=== PATIENT | female | born 1975 | race Caucasian/White ===

== ENCOUNTER → 2016-08-27 | Outpatient (CLI) | payer OTHER ==
[~2016-08-27] MED LIST: DOXY100T PO; LOW-TAB2 PO; [UNRECOGNIZED DRUG - CODE] TOP
[2016-08-27 13:43] LABS: HEMATOCRIT 33.1 % (35.0-46.0); MEAN CELL VOLUME 74.8 FL (80.0-100.0); MEAN CORPUSCULAR HEMOGLOBIN 23.4 PG (27.0-34.0); MEAN CORPUSCULAR HGB CONC 31.3 % (32.0-36.0); PLATELET COUNT 370 TH/MM3 (150-450); RED BLOOD COUNT 4.43 MIL/MM3 (4.00-5.30); RED CELL DISTRIBUTION WIDTH 14.9 % (11.6-17.2); WHITE BLOOD COUNT 7.7 TH/MM3 (4.0-11.0)
[2016-08-27 13:44] LABS: REVIEW FLAG FINAL
[2016-08-27 14:23] LABS: FREE T4 0.98 NG/DL (0.76-1.46)
== END ==
LOC: PLAB 08:10
PROVIDERS: ATTEND Family Medicine
DX: D50.9 Iron deficiency anemia, unspecified (principal)
CPT/HCPCS: 36415; 82728; 84439; 84443; 85027

== ENCOUNTER → 2016-12-11 | Outpatient (CLI) | payer OTHER ==
[2016-12-11 15:05] LABS: BASOPHIL % 0.3 % (0.0-2.0); EOSINOPHIL # 0.1 TH/MM3 (0-0.4); HEMATOCRIT 33.4 % (35.0-46.0); HEMO FLAGS DIFF FINAL; LYMPH % 21.2 % (9.0-44.0); LYMPHOCYTE # 1.7 TH/MM3 (1.0-4.8); MEAN CORPUSCULAR HEMOGLOBIN 23.7 PG (27.0-34.0); MEAN CORPUSCULAR HGB CONC 32.5 % (32.0-36.0); MONO % 3.4 % (0.0-8.0); NEUT % 74.1 % (16.0-70.0); PLATELET COUNT 415 TH/MM3 (150-450); RED BLOOD COUNT 4.58 MIL/MM3 (4.00-5.30); RED CELL DISTRIBUTION WIDTH 15.3 % (11.6-17.2); WHITE BLOOD COUNT 8.1 TH/MM3 (4.0-11.0)
[2016-12-11 15:32] LABS: ALT (GPT) 16 U/L (10-53); ANION GAP 9 MEQ/L (5-15); AST (GOT) 13 U/L (15-37); BICARBONATE 25.1 MEQ/L (21.0-32.0); BLOOD UREA NITROGEN 9 MG/DL (7-18); CHLORIDE 105 MEQ/L (98-107); GLOMERULAR FILTRATION RATE 64 ML/MIN (>89); GLUCOSE,FASTING 120 MG/DL (74-99); POTASSIUM 3.6 MEQ/L (3.5-5.1); RHEUMATOID FACTOR TRIGGER LESS THAN 10.0 IU/ML (0.0-14.9); SODIUM (NA) 139 MEQ/L (136-145)
[2016-12-11 15:40] LABS: ALKALINE PHOSPHATASE 104 U/L (45-117); FERRITIN 9 NG/ML (8-252); FREE T4 1.24 NG/DL (0.76-1.46); TOTAL BILIRUBIN ADULT 0.4 MG/DL (0.2-1.0); TRANSFERRIN IRON PROFILE 323 MG/DL (200-360)
[2016-12-15 15:54] LABS: THROMBIN TIME FOR LA ND sec (13-19)
== END ==
LOC: CLAB 14:09
PROVIDERS: ATTEND Obstetrics & Gynecology
DX: I10 Essential (primary) hypertension (principal); E03.9 Hypothyroidism, unspecified; E55.9 Vitamin D deficiency, unspecified; D50.9 Iron deficiency anemia, unspecified; R53.83 Other fatigue; R53.81 Other malaise; D89.89 Other specified disorders involving the immune mechanism, not elsewhere classified; Z13.0 Encounter for screening for diseases of the blood and blood-forming organs and certain disorders involving the immune mechanism
CPT/HCPCS: 36415; 80053; 82306; 82728; 83540; 83550; 84439; 84443; 85025; 85597; 85613; 85730; 86038; 86430

== ENCOUNTER → 2017-04-22 | Outpatient (CLI) | payer OTHER ==
[2017-04-22 10:37] LABS: HEMATOCRIT 37.4 % (35.0-46.0); MEAN CELL VOLUME 81.5 FL (80.0-100.0); MEAN CORPUSCULAR HEMOGLOBIN 27.1 PG (27.0-34.0); MEAN CORPUSCULAR HGB CONC 33.3 % (32.0-36.0); PLATELET COUNT 340 TH/MM3 (150-450); RED BLOOD COUNT 4.58 MIL/MM3 (4.00-5.30); REVIEW FLAG FINAL; WHITE BLOOD COUNT 7.5 TH/MM3 (4.0-11.0)
[2017-04-22 11:02] LABS: BICARBONATE 27.3 MEQ/L (21.0-32.0)
[2017-04-22 11:11] LABS: FREE T3 3.39 PG/ML (2.18-3.98); HDL CHOLESTEROL 40.9 MG/DL (40.0-60.0)
[2017-04-24 17:06] LABS: BIOAVAILABLE TESTOSTERONE 1.5 ng/dL
== END ==
LOC: CLAB 08:51
PROVIDERS: ATTEND Obstetrics & Gynecology
DX: E55.9 Vitamin D deficiency, unspecified (principal); D50.9 Iron deficiency anemia, unspecified; N18.1 Chronic kidney disease, stage 1; E03.9 Hypothyroidism, unspecified; Z13.220 Encounter for screening for lipoid disorders
CPT/HCPCS: 36415; 80048; 80061; 82306; 82728; 84403; 84410; 84443; 84481; 85027

== ENCOUNTER 2017-09-03 08:06 | Observation (INO) | payer OTHER ==
--- NOTE | 2017-09-02 10:02 | MH ---
cc: Norah Albright MD DATE OF ADMISSION: 09/03/2017 CHIEF COMPLAINT: Severe menometrorrhagia and dysmenorrhea despite endometrial ablation approximately 1 year prior. SCHEDULED PROCEDURE: Laparoscopic assisted supracervical hysterectomy with bilateral salpingectomy. HISTORY OF PRESENT CONDITION: The patient is a 42-year-old single white female, 2, para 1, status post a NovaSure in the office last October for menometrorrhagia. This NovaSure went uneventfully. However, in the fall, she began to have dysmenorrhea with light periods that have gradually increased in amount, time, duration and pain. Multiple sonograms have not revealed either a hematocolpos collection of endometrial fluid or adnexal pathology. However, this condition has continued to progress and she has chronic cervical motion tenderness and severe pain to where she is missing work and cannot function on a routine daily basis. She has not been febrile. She does not complain of changes in her bowel or bladder habits. She has undergone significant stress in the last couple of years, both with the health of her family members, financial and professional obligations. 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 She tries to exercise, eat healthy and does not smoke, drink or use illicit drugs. She has a history of a distant Pap smear at the time of her with her child, who is now in medical school. She has not responded to oral contraceptives or other noninvasive measures at this time. She has not tolerated endometrial biopsy due to pain, but at the time of her NovaSure, there was no evidence of any hyperplasia. FAMILY HISTORY: Significant for severe diverticulitis. Her mother actually had a perforated diverticular pouch that required a colostomy. ALLERGIES: SHE DOES HAVE AN ALLERGY TO CEPHALOSPORINS THAT APPARENTLY IS ANAPHYLAXIS. MEDICATIONS: Her current medications are alprazolam for sleep, Fioricet for occasional headache. She was just given antibiotics for her extreme cervical motion tenderness despite other signs of infection. PHYSICAL EXAMINATION: GENERAL: She is a well-developed, well-nourished female. VITAL SIGNS: She is afebrile. She is normotensive. PULMONARY: Her lungs are clear to auscultation. CARDIOVASCULAR: Heart rate and rhythm are regular. ABDOMEN: Diffusely tender and she has almost rebound and guarding with evaluation of the lower pelvis. She has normoactive bowel sounds. BACK: She has no CVA tenderness. LYMPHATICS: No lymphadenopathy. PELVIC: Perineum is normal. Cervix is elevated. There is no abnormal discharge, just dark blood. It is not purulent. She has cervical motion tenderness. Last Pap was normal. Most recent ultrasound was normal. She does not tolerate a bimanual exam comfortably. Previous guaiac was negative. EXTREMITIES: Unremarkable. IMPRESSION: Recurrent and severe pelvic pain, with menometrorrhagia despite endometrial ablation. PLAN: To proceed with LASH and removal of tubes. It is our goal to leave the cervix and ovaries. If we find expected pathology in either, she understands we will remove the cervix and/or the ovaries. We reviewed risks of medication, anesthesia, damage to the bowel, bladder, blood vessels. She has signed consents and is scheduled for . MD MEL Tapia/QUEENIE , 10:32 PM , 11:01 PM
[~2017-09-03] VITALS: Ht 165.1 cm; Wt 86.2 kg
[2017-09-03 06:20] VITALS: BP 137/78; PULSE 87; RESP 18; TEMP 97.7; O2SAT 99
[~2017-09-03 08:06] MED LIST changes: +ALPR0.25 PO; +AMLO5 PO; +BACT800T5 PO; +CIPR500T2 PO; -DOXY100T PO; +GUMMCHW PO; +HYDR25TA5 PO; +LEVO88TA2 PO; -LOW-TAB2 PO; +MELA1TAB18 PO; +NORE1TAB73 PO; -[UNRECOGNIZED DRUG - CODE] TOP
[2017-09-03] MEDS ORDERED: POVIDONE IODINE 5% (ANTISEPSIS KIT) 4 APPLICATIONS EACH NARE PRN (08:30)
[2017-09-03] MEDS ORDERED: SODIUM CHLORID 0.9% 500 ML IV PRN (08:30)
[2017-09-03] MEDS ORDERED: LACTATED RINGER'S 1000 ML IV PRN (08:30)
[2017-09-03] MEDS ORDERED: METOPROLOL TARTRATE 25 MG TAB PO PRN (08:30)
[2017-09-03] MEDS ORDERED: CHLORHEXIDINE GLUCONATE 2 % 1 PACK (2 CLOTHS) TOPICAL PRN (08:30)
[2017-09-03] MEDS ORDERED: CLINDAMYCIN 600 MG/NS 100 ML IV SCH ×2 (08:45)
[2017-09-03 08:58] LABS: BACTERIA, URINE RARE /hpf; BILIRUBIN, URINE NEG (NEG); BLOOD, URINE MOD (NEG); GLUCOSE,URINE NEG (NEG); KETONE, URINE 40 mg/dL (NEG); MUCUS URINE FEW /lpf (OCC); NITRITE,URINE NEG (NEG); SQUAMOUS EPITHELIAL CELL URINE 7 /hpf (0-5); URINE COLOR YELLOW (YELLW/STRAW); URINE LEUKOCYTE ESTERASE TRACE (NEG)
[2017-09-03] MEDS ORDERED: PERC5TAB12 PO (09:05)
[2017-09-03] MEDS ORDERED: SODIUM CHLORIDE 0.9% INJ 100 ML ONE (09:10)
[2017-09-03 09:23] LABS: AUTOMATED NEUTROPHIL # 6.3 TH/MM3 (1.8-7.7); BASOPHIL # 0.1 TH/MM3 (0-0.2); BASOPHIL % 0.7 % (0.0-2.0); EOSINOPHIL % 0.6 % (0.0-4.0); HEMATOCRIT 40.3 % (35.0-46.0); HEMOGLOBIN 13.8 GM/DL (11.6-15.3); LYMPH % 14.1 % (9.0-44.0); LYMPHOCYTE # 1.1 TH/MM3 (1.0-4.8); MEAN CELL VOLUME 81.6 FL (80.0-100.0); MEAN CORPUSCULAR HGB CONC 34.3 % (32.0-36.0); MEAN PLATELET VOLUME 7.7 FL (7.0-11.0); MONO % 4.2 % (0.0-8.0); MONOCYTE # 0.3 TH/MM3 (0-0.9); NEUT % 80.4 % (16.0-70.0); PLATELET COUNT 387 TH/MM3 (150-450); RED BLOOD COUNT 4.94 MIL/MM3 (4.00-5.30); WHITE BLOOD COUNT 7.9 TH/MM3 (4.0-11.0)
[2017-09-03 09:43] LABS: ALBUMIN 4.2 GM/DL (3.4-5.0); ALT (GPT) 28 U/L (10-53); AST (GOT) 21 U/L (15-37); BICARBONATE 24.9 MEQ/L (21.0-32.0); BLOOD UREA NITROGEN 11 MG/DL (7-18); CALCIUM 10.1 MG/DL (8.5-10.1); CHLORIDE 100 MEQ/L (98-107); CREATININE 1.04 MG/DL (0.50-1.00); GLOMERULAR FILTRATION RATE 59 ML/MIN (>89); GLUCOSE,RANDOM 111 MG/DL (74-106); SODIUM (NA) 136 MEQ/L (136-145)
[2017-09-03 09:47] LABS: ALKALINE PHOSPHATASE 126 U/L (45-117); TOTAL BILIRUBIN ADULT 0.4 MG/DL (0.2-1.0); TOTAL PROTEIN 9.3 GM/DL (6.4-8.2)
[2017-09-03] MEDS ORDERED: BUPIVACAINE HCL PF 0.25% 30 ML VIAL ONE (10:06)
[2017-09-03] MEDS ORDERED: SODIUM CHLORIDE 0.9% 20 ML VIAL ONE (10:06)
[2017-09-03] MEDS ORDERED: BUPIVACAINE LIPOSOME PF 1.3% 20 ML VIAL ONE (10:07)
[2017-09-03] MEDS ORDERED: DEXAMETHASONE SOD PHOS PF 10 MG/ML VIAL ONE (10:45)
[2017-09-03] MEDS ORDERED: LIDOCAINE 1%/EPINEPHrine 1:100,000 SOLN 50 ML VIAL ONE (10:48)
[2017-09-03] MEDS ORDERED: BUPIVACAINE/EPINEPHRINE 0.25% 50 ML VIAL ONE (10:48)
[2017-09-03] MEDS ORDERED: ACETAMINOPHEN 1000 MG/100 ML 100 ML IV ONE (10:52)
[2017-09-03] MEDS ORDERED: LACTATED RINGER'S 1000 ML INJ 1,000 ML IV ONE (12:00)
[2017-09-03] MEDS ORDERED: KETOROLAC TROMETHAMINE 30 MG/ML (IVP) VIAL IV PUSH ONE ×2 (12:00→14:30)
[2017-09-03] MEDS ORDERED: METOPROLOL TARTRATE 5 MG/5 ML VIAL IV ONE (12:00)
[2017-09-03] MEDS ORDERED: ONDANSETRON HCL 4 MG/2 ML VIAL IV ONE (12:00)
[2017-09-03] MEDS ORDERED: PROPOFOL 200 MG/20 ML AMP IV ONE (12:00)
[2017-09-03] MEDS ORDERED: ROCURONIUM INJ 50 MG/5 ML SYRINGE IV PUSH ONE (12:00)
[2017-09-03] MEDS ORDERED: DEXAMETHASONE SOD PHOS 4 MG/ML VIAL IV ONE (12:00)
[2017-09-03] MEDS ORDERED: GENTAMICIN SULFATE 80 MG/2 ML VIAL ONE (12:07)
[2017-09-03] MEDS ORDERED: SUGAMMADEX SODIUM 200 MG/2 ML VIAL IV PUSH ONE (12:54)
--- NOTE | 2017-09-03 13:25 | EKG ---
Date Performed: 09/03/2017 Time Performed: 09:04:21 PTAGE: 42 years EKG: Sinus rhythm NORMAL ECG NO PREVIOUS TRACING DOCTOR: [place] Marcelino Interpretating Date/Time 09/03/2017 13:24:04
[2017-09-03] MEDS ORDERED: KETOROLAC TROMETHAMINE 30 MG/ML (IVP) VIAL ONE (13:46)
[2017-09-03] MEDS: LACTATED RINGER'S 1000 ML INJ 1,000 ML IV SCH ×2 (13:46→23:20)
[2017-09-03] MEDS ORDERED: *morphine SULFATE 8 MG/ML PERIprocedure ONLY ONE (13:47)
[2017-09-03] MEDS ORDERED: MIDAZOLAM HCL 2 MG/2 ML VIAL ONE (13:51)
[2017-09-03] MEDS ORDERED: ONDANSETRON HCL 4 MG/2 ML VIAL IVP PRN (14:00)
[2017-09-03] MEDS ORDERED: MORPHINE SULFATE 30 MG/30 ML PCA IV SCH (14:00)
[2017-09-03] MEDS ORDERED: diphenhydrAMINE HCL 25 MG CAP PO PRN (14:00)
[2017-09-03] MEDS ORDERED: ONDANSETRON ODT 4 MG TAB PO PRN (14:00)
[2017-09-03] MEDS ORDERED: HYDROmorphone HCL PF 1 MG/ML VIAL IVP PRN (14:00)
[2017-09-03] MEDS ORDERED: NALOXONE HCL 0.4 MG/ML AMP IV PUSH PRN (14:00)
[2017-09-03] MEDS ORDERED: SODIUM CHLORIDE 0.9% FLUSH 10 ML FLUSH IV FLUSH PRN (14:00)
[2017-09-03] MEDS ORDERED: LORazepam 0.5 MG TAB PO PRN (14:00)
[2017-09-03] MEDS ORDERED: ZOLPIDEM TARTRATE 5 MG TAB PO PRN (14:00)
[2017-09-03] MEDS ORDERED: oxyCODONE/ACETAMINOPHEN 5 MG/325 MG TAB PO PRN (14:00)
[2017-09-03] MEDS ORDERED: *morphine SULFATE 4 MG/ML PERIprocedure ONLY ONE (14:05)
[2017-09-03] MEDS ORDERED: PILL SPLITTER OTHER PRN (14:15)
[2017-09-03] MEDS ORDERED: *HYDROmorphone PF 0.5 MG/0.5 ML PERIprocedure ONLY ONE (14:26)
[2017-09-03] MEDS ORDERED: DO NOT ADM ANY ANTICOAGULANT DRUGS PRN (14:30)
[2017-09-03] MEDS ORDERED: *ONDANSETRON 4 MG VIAL PERIprocedural Use ONLY ONE (14:52)
--- NOTE | 2017-09-03 15:10 | MP ---
cc: Norah Albright MD DATE OF OPERATION: 09/03/2017 PREOPERATIVE DIAGNOSES: 1. Severe pelvic pain. 2. Metrorrhagia. POSTOPERATIVE DIAGNOSES: Bilateral hematosalpinges and adenomyosis. ANESTHESIA: General. SURGEON: MD Jose Ramon. PROCEDURE: Laparoscopic-assisted supracervical hysterectomy, bilateral salpingectomy and cystoscopy. FINDINGS: Examination under anesthesia revealed a nulliparous cervix with no descent, a globular mobile uterus that was not fixed. The adnexa were not palpable and the rectovaginal exam did not show any thickening of the parametrium. Upon entering into the peritoneal cavity, it was immediately noted that the right tube was very enlarged; it appeared larger than the uterus on camera with blood in the tube but no purulence, no . There was some endometriosis noted in the cul-de-sac and around the tube and on the ovary. The left tube was similar, although not quite as big, but it was stuck in the cul-de-sac. Both ovaries were clean and appeared healthy. There were no adhesions, no sign of obvious cancer, no purulence, no bleeding into the abdominal cavity. The liver edge and gallbladder were normal. The appendix was not visualized. The tubes and uterus were easily from their attachments, morcellated and pulled through the 10 mm incision on the left. After that, copious irrigation with clindamycin was performed and there was no evidence of bleeding, iatrogenic injury or other pathology. A cystoscopy was done that showed normal bladder and good flow from both ureteral orifices. PROCEDURE: The patient was identified as Scarlet Flores. Her permit was reviewed with her. She was taken to the operating room. She was placed under general endotracheal anesthesia. She was administered a TAP for additional pain control. She was prepped and draped in the usual sterile fashion in the dorsal lithotomy position. A timeout was performed. The Martínez was placed. An acorn tenaculum was placed in the os. Attention was directed to the abdomen. A 5 mm incision was made in the umbilicus and a 5 mm trocar and sleeve were inserted in the peritoneal cavity under direct visualization. A pneumoperitoneum was created and then a right lower quadrant, 5 mm and a 12 mm left lower quadrant trocar and sleeve were placed under direct visualization. Systematic evaluation of the abdominal and pelvic contents showed the findings as noted above. The right round ligament was transected with the harmonic scalpel and the anterior leaf of the broad ligament taken off the lower uterine segment. There was mild scarring from her previous . The very enlarged tube was placed on medial traction and transected from the ovary and infundibulopelvic. It was actually the tuboovarian that was cut and then successive pedicles were taken down to the level close to the uterosacrals. This was performed on the opposite side without difficulty. The left tube was stuck into the cul-de-sac, but not scarred and simply just probably there by gravity. The left round ligament was transected and the anterior leaf of the broad ligament taken down and the 2 incisions met. The bladder was pulled downward. The tube was then excised from the tuboovarian ligament this line was extended to the round ligament and taken down to the level equal to the right. Then, the harmonic scalpel was used to cut across the cervix, encountering the acorn which was removed. Then the morcellator was placed through the 12 mm port and the tubes were taken out without morcellation and then the uterus was simply morcellated into several large pieces and removed. Copious irrigation was performed and evaluation of the entire abdominal cavity. Then Interceed was placed on the cervical stump. The pneumoperitoneum was released under direct visualization. The fascia in the 12 mm incision was closed with Vicryl and then the skin was all closed with Monocryl. The scope was then placed at the perineum. The suction dipper machine operator was used to fill the bladder through the Martínez and the Martínez was removed and then the scope was placed into the bladder and flow from both ureteral orifices was noted and the bladder was healthy without any concerns noted. The Martínez catheter was replaced and then she was placed in dorsal supine position, awoken, and taken to the recovery room in stable condition. Norah Albright MD PPC/SB , 02:43 PM , 03:09 PM
[2017-09-03] MEDS: DOCUSATE SODIUM 100 MG CAP PO SCH (16:10)
[2017-09-03 16:20] VITALS: BP 137/78; PULSE 87; RESP 18; TEMP 97.7; O2SAT 99
--- NOTE | 2017-09-03 18:39 | HHI.DCPOC ---
Discharge Care Plan Report Symptoms to Your Doctor -Temperature above 100.5 degrees -Redness, of incision or excessive or foul smelling drainage -Unusual pain or calf pain -Increased vaginal bleeding -Painful or difficulty urinating -Feelings of extreme sadness or anxiety after 2 weeks Goals to Promote Your Health * To prevent worsening of your condition and complications * To maintain your health at the optimal level Directions to Meet Your Goals Take your medications as prescribed Follow your dietary instruction Follow activity as directed Ensure plenty of rest for recovery Drink fluids for hydration Keep your appointments as scheduled Take your immunizations and boosters as scheduled If your symptoms worsen call your PCP, if no PCP go to Urgent Care Center or Emergency Room Smoking is Dangerous to Your Health. Avoid second hand smoke Call the 24-hour crisis hotline for domestic abuse at Norah Albright MD Sep 03, 2017 18:39
[2017-09-03 20:00] VITALS: BP 155/87; PULSE 100; RESP 20; TEMP 98; O2SAT 97
[2017-09-03] MEDS ORDERED: ACETAMINOPHEN 1000 MG/100 ML 100 ML IV PRN (20:45)
[2017-09-03] MEDS ORDERED: TEMAZEPAM 15 MG CAP PO ONE (22:00)
[2017-09-03] MEDS: PCA - TOTAL MG MORPHINE DELIVERED PER SHIFT SCH (22:00)
[2017-09-03] MEDS ORDERED: ALPRAZolam 0.5 MG TAB PO ONE (22:00)
[2017-09-04] VITALS: BP_SYST 109; BP_SYST 155; BP_DIAS 59; BP_DIAS 86; PULSE 62; PULSE 86; RESP 16; RESP 18; TEMP 98.2; TEMP 98.3; O2SAT 97
[2017-09-04 04:00] VITALS: BP 141/71; PULSE 90; RESP 18; TEMP 98; O2SAT 97
[2017-09-04] MEDS: DOCUSATE SODIUM 100 MG CAP PO SCH ×2 (05:03→17:21)
[2017-09-04] MEDS: PCA - TOTAL MG MORPHINE DELIVERED PER SHIFT SCH (05:30)
[2017-09-04 06:03] LABS: AUTOMATED NEUTROPHIL # 6.9 TH/MM3 (1.8-7.7); BASOPHIL % 0.2 % (0.0-2.0); EOSINOPHIL % 0.5 % (0.0-4.0); HEMATOCRIT 33.4 % (35.0-46.0); HEMOGLOBIN 11.4 GM/DL (11.6-15.3); LYMPH % 17.9 % (9.0-44.0); LYMPHOCYTE # 1.7 TH/MM3 (1.0-4.8); MEAN CELL VOLUME 81.6 FL (80.0-100.0); MEAN CORPUSCULAR HEMOGLOBIN 27.8 PG (27.0-34.0); MEAN CORPUSCULAR HGB CONC 34.1 % (32.0-36.0); MEAN PLATELET VOLUME 7.6 FL (7.0-11.0); MONO % 7.4 % (0.0-8.0); MONOCYTE # 0.7 TH/MM3 (0-0.9); PLATELET COUNT 330 TH/MM3 (150-450); RED BLOOD COUNT 4.08 MIL/MM3 (4.00-5.30); RED CELL DISTRIBUTION WIDTH 13.7 % (11.6-17.2); WHITE BLOOD COUNT 9.4 TH/MM3 (4.0-11.0)
[2017-09-04 06:36] LABS: BICARBONATE 28.3 MEQ/L (21.0-32.0); CALCIUM 8.7 MG/DL (8.5-10.1); CREATININE 0.84 MG/DL (0.50-1.00)
[2017-09-04 08:00] VITALS: BP 144/87; PULSE 82; RESP 18; TEMP 97.9; O2SAT 98
--- NOTE | 2017-09-04 08:06 | HHI.PR ---
Subjective Remarks Doing well, painful but more post op and gas in nature; the severe left sided pain is gone eating well. difficulty emptying bladder incisions clean and dry Objective Vital Signs Vital Signs Date Time Temp Pulse Resp B/P (MAP) Pulse Ox O2 Delivery O2 Flow Rate FiO2 09/04/17 05:30 18 09/04/17 04:00 98.0 90 18 141/71 (94) 97 09/04/17 00:00 98.3 86 18 155/86 (109) 97 09/03/17 22:00 16 09/03/17 20:00 98.0 100 20 155/87 (109) 97 09/03/17 16:20 97.7 87 18 137/78 (97) 99 09/03/17 15:42 18 09/03/17 15:00 82 19 130/81 (97) 96 Room Air 09/03/17 14:45 99.1 88 19 142/84 (103) 99 Room Air 09/03/17 14:30 81 19 136/84 (101) 100 Room Air 09/03/17 14:15 81 17 148/93 (111) 100 Nasal Cannula 2 09/03/17 14:00 78 17 154/93 (113) 100 Nasal Cannula 3 09/03/17 13:45 93 17 155/91 (112) 99 Nasal Cannula 3 09/03/17 13:42 99.2 96 17 156/89 (111) 100 Nasal Cannula 3 09/03/17 09:05 98.5 103 20 156/90 (112) 96 I/O 09/03/17 09/03/17 09/03/17 09/04/17 09/04/17 09/04/17 07:00 15:00 23:00 07:00 15:00 23:00 Intake Total 1200 ml 50 ml Output Total 475 ml 750 ml 650 ml Balance 725 ml -700 ml -650 ml Intake Oral 50 ml Other 1200 ml Output Urine Total 400 ml 750 ml 650 ml Estimated Blood Loss 75 ml # Voids 2 2 Result Diagram: 09/04/17 0500 09/04/17 0500 Objective Remarks Chest is clear, regular rate and rhythm. Abdomen is soft and non-distended. Incisions clean and dry. Ext no CCE. A/P Assessment and Plan Post Op Day 1 Doing well as can be expected Home today and return to office in one weeks. Norah Albright MD Sep 04, 2017 08:05
[2017-09-04] MEDS ORDERED: ESTRADIOL 0.1 MG/24 HR PATCH T-DERMAL ONE (09:00)
[2017-09-04] MEDS: IBUPROFEN 600 MG TAB PO PRN ×2 (09:31→17:22)
[2017-09-04] MEDS: TAMSULOSIN HCL 0.4 MG CAP PO SCH (09:31)
[2017-09-04] MEDS: PROMETHAZINE HCL 25 MG TAB PO PRN ×2 (09:31→15:57)
[2017-09-04] MEDS: oxyCODONE/ACETAMINOPHEN 5 MG/325 MG TAB PO PRN ×2 (15:56→20:27)
[2017-09-04 16:15] VITALS: BP 137/73; PULSE 97; RESP 18; TEMP 98.4; O2SAT 100
[2017-09-04] MEDS: SODIUM CHLORIDE 0.9% FLUSH 10 ML FLUSH IV FLUSH SCH (19:23)
[2017-09-04 20:00] VITALS: BP 138/75; PULSE 64; RESP 18; TEMP 98; O2SAT 97
[2017-09-04] MEDS: LACTATED RINGER'S 1000 ML INJ 1,000 ML IV SCH (21:41)
[2017-09-05] VITALS: BP 109/59; PULSE 62; RESP 16; TEMP 98.2; O2SAT 97
[2017-09-05] MEDS: PROMETHAZINE HCL 25 MG TAB PO PRN (03:11)
[2017-09-05] MEDS: IBUPROFEN 600 MG TAB PO PRN (03:11)
[2017-09-05] MEDS: DOCUSATE SODIUM 100 MG CAP PO SCH (03:11)
[2017-09-05 04:00] VITALS: BP 150/86; PULSE 92; RESP 18; TEMP 98; O2SAT 98
[2017-09-05] MEDS: oxyCODONE/ACETAMINOPHEN 5 MG/325 MG TAB PO PRN ×2 (04:27→09:00)
[2017-09-05] MEDS: LACTATED RINGER'S 1000 ML INJ 1,000 ML IV SCH (05:43)
[2017-09-05] MEDS ORDERED: TAMS5CAP PO (08:09)
[2017-09-05] MEDS ORDERED: PROM25TA10 PO (08:10)
--- NOTE | 2017-09-05 08:34 | HHI.PR ---
Subjective Remarks Doing well, pain is well controlled, eating well, voiding, no nausea or vomiting , ready for discharge home. Objective Vital Signs Vital Signs Date Time Temp Pulse Resp B/P (MAP) Pulse Ox O2 Delivery O2 Flow Rate FiO2 09/05/17 04:00 98.0 92 18 150/86 (107) 98 09/05/17 00:00 98.2 62 16 109/59 (76) 97 09/04/17 20:00 98.0 64 18 138/75 (96) 97 09/04/17 16:15 98.4 97 18 137/73 (94) 100 I/O 09/04/17 09/04/17 09/04/17 09/05/17 09/05/17 09/05/17 07:00 15:00 23:00 07:00 15:00 23:00 Output Total 650 ml Balance -650 ml Output Urine Total 650 ml # Voids 2 2 1 Result Diagram: 09/04/17 0500 09/04/17 0500 Objective Remarks Chest is clear, regular rate and rhythm. Abdomen is soft and non-distended. Incisions clean and dry. Ext no CCE. A/P Assessment and Plan 42-year-old status post L THOMAS bilateral salpingectomy and cystoscopy. 1. Postoperative day #2: Afebrile, vital signs stable, meeting milestones, discharge home today. Discussed postoperative precautions, expectations and follow-up. Man Leggett MD Sep 05, 2017 08:34
[2017-09-05 08:35] VITALS: BP 155/78; PULSE 83; RESP 16; TEMP 98.2; O2SAT 100
[2017-09-05] MEDS: TAMSULOSIN HCL 0.4 MG CAP PO SCH (08:59)
[2017-09-05] MEDS: SODIUM CHLORIDE 0.9% FLUSH 10 ML FLUSH IV FLUSH SCH (09:00)
== END 2017-09-05 09:54 | disposition home or self-care (01) ==
LOC: HSDC 08:06 → HSDI 13:50 → H1EA 15:17
PROVIDERS: ADMIT Obstetrics & Gynecology; ATTEND Obstetrics & Gynecology
DX: R10.2 Pelvic and perineal pain (principal); N92.1 Excessive and frequent menstruation with irregular cycle; N80.0 Endometriosis of uterus; N70.91 Salpingitis, unspecified; N80.1 Endometriosis of ovary; N94.6 Dysmenorrhea, unspecified; I10 Essential (primary) hypertension
CPT/HCPCS: 00840; 58542; 80048; 80053; 81001; 84703; 85025; 86850; 86900; 86901; 88305; 88307; 93005; 96365; 96375; C1765; C9290; G0378; J0131; J1100; J1170; J1580; J1885; J2250; J2270; J2405; J3010; J7120; Q0169